=== PATIENT | female | born 1955 | race Caucasian/White ===

== ENCOUNTER 2022-08-03 12:19 | Outpatient (CLI) | payer OTHER | END 2022-08-03 12:20 | disposition home or self-care (01) | LOC: SONOGRAMA 12:19 | PROVIDERS: ATTEND Surgery | DX: C50.411 Malignant neoplasm of upper-outer quadrant of right female breast (principal); N60.11 Diffuse cystic mastopathy of right breast; N60.12 Diffuse cystic mastopathy of left breast ==

== ENCOUNTER 2023-04-11 07:47 | Outpatient (CLI) | payer OTHER | END 2023-04-11 07:57 | disposition home or self-care (01) | LOC: MAMO-SONO 07:47 | PROVIDERS: ATTEND Surgery | DX: N60.11 Diffuse cystic mastopathy of right breast (principal); N60.12 Diffuse cystic mastopathy of left breast; Z12.31 Encounter for screening mammogram for malignant neoplasm of breast ==

== ENCOUNTER 2023-07-24 11:13 | Outpatient (CLI) | payer OTHER | END 2023-07-24 11:19 | disposition home or self-care (01) | LOC: MAMO-SONO 11:13 | PROVIDERS: ATTEND Obstetrics & Gynecology | DX: R10.2 Pelvic and perineal pain (principal) ==

== ENCOUNTER → 2024-03-28 | Outpatient (CLI) | payer OTHER | END | disposition home or self-care (01) | LOC: SONOGRAMA 08:30 | DX: R05.9 Cough, unspecified (principal); R10.2 Pelvic and perineal pain; R94.5 Abnormal results of liver function studies ==

== ENCOUNTER 2024-04-18 11:12 | Outpatient (CLI) | payer OTHER | END 2024-04-18 11:20 | disposition home or self-care (01) | LOC: MAMO-SONO 11:12 | PROVIDERS: ATTEND Surgery | DX: N60.11 Diffuse cystic mastopathy of right breast (principal); N60.12 Diffuse cystic mastopathy of left breast; Z12.31 Encounter for screening mammogram for malignant neoplasm of breast ==

== ENCOUNTER 2025-04-21 09:18 | Outpatient (CLI) | payer OTHER | END 2025-04-21 09:20 | disposition home or self-care (01) | LOC: MAMO-SONO 09:18 | PROVIDERS: ATTEND Obstetrics & Gynecology | DX: N60.11 Diffuse cystic mastopathy of right breast (principal); N60.12 Diffuse cystic mastopathy of left breast; Z12.31 Encounter for screening mammogram for malignant neoplasm of breast ==

== ENCOUNTER 2025-04-21 10:38 | Outpatient (CLI) | payer OTHER | END 2025-04-21 10:43 | disposition home or self-care (01) | LOC: RAD 10:38 | DX: M25.511 Pain in right shoulder (principal); M25.512 Pain in left shoulder ==